=== PATIENT | female | born 1965 | race Caucasian/White ===

== ENCOUNTER → 2019-08-18 | Outpatient (CLI) | payer OTHER, BC ==
[~2019-08-18] MED LIST: NKDA; NO HOME MEDICATIONS
== END ==
LOC: COL.VAS 13:08
DX: M79.604 Pain in right leg (principal)

== ENCOUNTER → 2021-07-24 | Outpatient (CLI) | payer BC | LOC: MC.RAD 08:11 | DX: Z12.31 Encounter for screening mammogram for malignant neoplasm of breast (principal) ==

== ENCOUNTER → 2021-11-21 | Outpatient (CLI) | payer BC | LOC: COL.RAD 07:30 | DX: K80.80 Other cholelithiasis without obstruction (principal) ==